=== PATIENT | male | born 1965 | race African-American/Black ===

== ENCOUNTER 2023-10-11 10:20 | Inpatient (IN) | payer MEDICARE, OTHER ==
[2023-10-11 11:11] VITALS: BMI 22.1
[2023-10-11] MEDS ORDERED: POLYETHYLENE GLYCOL (HEALTHYLAX) 3350 17 GM PACKET PO PRN (12:52)
[2023-10-11] MEDS ORDERED: BENZOCAINE/MENTHOL (CHLORASEPTIC ) LOZENGE MM PRN (12:52)
[2023-10-11] MEDS ORDERED: IBUPROFEN 400 MG TABLET (FP) PO PRN (12:52)
[2023-10-11] MEDS ORDERED: NALOXONE (NARCAN) HCL 4 MG/0.1 ML SPRAY NS PRN (12:52)
[2023-10-11] MEDS ORDERED: hydrOXYzine PAMOATE 25 MG CAPSULE (FP) PO PRN (12:52)
[2023-10-11] MEDS ORDERED: ACETAMINOPHEN 325 MG TABLET (FP) PO PRN (12:52)
[2023-10-11] MEDS ORDERED: LOPERAMIDE HCL 2 MG CAPSULE PO PRN (12:52)
[2023-10-11] MEDS ORDERED: BENZONATATE 200 MG CAPSULE PO PRN (12:52)
[2023-10-11] MEDS ORDERED: DICYCLOMINE HCL 10 MG CAPSULE PO PRN (12:52)
[2023-10-11] MEDS ORDERED: NALOXONE HCL 0.4 MG/ML VIAL IM PRN (12:52)
[2023-10-11] MEDS ORDERED: NICOTINE POLACRILEX 2 MG GUM BUC PRN (12:52)
[2023-10-11] MEDS ORDERED: guaiFENesin 600 MG TABLET.ER (FP) PO PRN (12:52)
[2023-10-11] MEDS ORDERED: BISMUTH SUBSALICYLATE 524 MG/30 ML PO PRN (12:52)
[2023-10-11] MEDS: chlordiazePOXIDE HCL 25 MG CAPSULE PO SCH (17:15)
[2023-10-11] MEDS: THIAMINE 100 MG TABLET PO SCH (22:23)
[2023-10-11] MEDS: MELATONIN 5 MG TABLETS PO SCH (22:23)
[2023-10-12] MEDS ORDERED: PATIENT'S OWN MEDICATION (NON-FORMULARY) (Oxycodone Hcl/Acetaminophen [Oxycodone-Acetamino PO PRN (03:17)
[2023-10-12] MEDS: ASPIRIN 81 MG CHEWABLE TABLETS PO SCH (10:15)
[2023-10-12] MEDS: DOCUSATE SODIUM 100 MG CAPSULE (FP) PO SCH (10:15)
[2023-10-12] MEDS: PRENATAL VITAMINS W/ FOLIC ACID TABLET (FP) PO SCH (10:15)
[2023-10-12] MEDS: NICOTINE 21 MG/24 HOURS TOPICAL PATCH TD SCH (10:16)
[2023-10-12] MEDS: ENALAPRIL MALEATE 10 MG TABLET PO SCH (10:16)
[2023-10-12 10:32] LABS: HEMATOCRIT 36.6 % (35.4-49); MCHC 32.7 g/dl (32.0-35.9); MEAN CELL VOLUME 82.7 fl (80-96); MEAN PLT VOLUME 9.4 fl (7.5-11.1); PLATELET COUNT 278 10^3/uL (134-434); RBC 4.43 M/mm3 (4.00-5.60); RDW 14.7 % (11.9-15.9); WHITE BLOOD COUNT 3.5 K/mm3 (4.0-10.0)
[2023-10-12 10:51] LABS: CALCIUM 9.3 mg/dL (8.5-10.1)
[2023-10-12 10:52] LABS: BLOOD UREA NITROGEN 5.6 mg/dL (7-18)
[2023-10-12 10:55] LABS: BILIRUBIN,TOTAL 0.3 mg/dL (0.2-1); TOT PROT 8.1 g/dl (6.4-8.2)
[2023-10-12] MEDS: METHOCARBAMOL 500 MG TABLET PO PRN (11:08)
[2023-10-12] MEDS: hydrOXYzine PAMOATE 50 MG CAPSULE (FP) PO PRN (11:08)
[2023-10-12] MEDS: METHIMAZOLE 10 MG TABLET PO SCH (11:42)
[2023-10-12] MEDS: chlordiazePOXIDE HCL 25 MG CAPSULE PO PRN (14:26)
[2023-10-12] MEDS: MAGNESIUM HYDROX 2400MG/30ML ORAL SUSPENSION 30 ML CUP PO PRN (14:46)
[2023-10-12] MEDS: traZODone HCL 100 MG TABLET (FP) PO SCH (22:25)
[2023-10-12] MEDS: SENNOSIDES 8.6MG TABLET (FP) PO SCH (22:25)
[2023-10-12] MEDS: ATORVASTATIN CA 80 MG TABLET (FP) PO SCH (22:25)
[2023-10-13] MEDS: chlordiazePOXIDE HCL 25 MG CAPSULE PO SCH (05:21)
[2023-10-13] MEDS: IBUPROFEN 600 MG TABLET (FP) PO PRN (05:22)
[2023-10-13] MEDS: METHYL SALICYLATE/MENTHOL OINT 30 GM TUBE TP SCH (12:45)
[2023-10-13] MEDS: NAPROXEN 500 MG TABLET PO SCH (22:46)
[2023-10-14] MEDS ORDERED: chlordiazePOXIDE HCL 10 MG CAPSULE PO PRN
[2023-10-14] MEDS: chlordiazePOXIDE HCL 10 MG CAPSULE PO SCH (05:22)
[2023-10-14] MEDS: METHOCARBAMOL 500 MG TABLET PO PRN (10:47)
[2023-10-14] MEDS: ONDANSETRON *ODT* 4 MG TABLET SL PRN (10:47)
[2023-10-14] MEDS: MAG HYDROX/AL HYDROX/SIMETH 30 ML UNIT-DOSE CUP PO PRN (17:38)
[2023-10-15] MEDS: chlordiazePOXIDE HCL 10 MG CAPSULE PO SCH (05:42)
[2023-10-15 06:51] VITALS: TEMP 97.8
[2023-10-15 08:53] VITALS: BP 144/90; PULSE 77; RESP 16
[2023-10-15] MEDS: DOCUSATE SODIUM 100 MG CAPSULE (FP) PO SCH (09:16)
[2023-10-15] MEDS: SENNOSIDES 8.6MG TABLET (FP) PO SCH (09:18)
[2023-10-16] MEDS ORDERED: chlordiazePOXIDE HCL 10 MG CAPSULE PO ONE (05:00)
== END 2023-10-15 09:12 | disposition other institution (70) | DRG 897 ==
LOC: YASAS 10:20 → Y6N 13:52
PROVIDERS: ADMIT Allergy & Immunology; ATTEND Surgery
PROC: HZ2ZZZZ Detoxification Services for Substance Abuse Treatment (ICD-10-PCS; principal; 2023-10-11)
DX: F10.230 Alcohol dependence with withdrawal, uncomplicated (principal); F14.20 Cocaine dependence, uncomplicated; F19.282 Other psychoactive substance dependence with psychoactive substance-induced sleep disorder; F17.210 Nicotine dependence, cigarettes, uncomplicated; F31.9 Bipolar disorder, unspecified; E05.90 Thyrotoxicosis, unspecified without thyrotoxic crisis or storm; E78.5 Hyperlipidemia, unspecified; K59.00 Constipation, unspecified; K21.9 Gastro-esophageal reflux disease without esophagitis; I25.10 Atherosclerotic heart disease of native coronary artery without angina pectoris; I10 Essential (primary) hypertension; I25.2 Old myocardial infarction; Z95.5 Presence of coronary angioplasty implant and graft; Z86.11 Personal history of tuberculosis; Z86.2 Personal history of diseases of the blood and blood-forming organs and certain disorders involving the immune mechanism
CPT/HCPCS: 36415; 71046-TC-FY; 80053; 80305; 80307; 84484; 85027; 86780; 93005; 93010; Q0162

== ENCOUNTER 2024-02-07 11:29 | Inpatient (IN) | payer MEDICARE, OTHER ==
[2024-02-07 12:11] VITALS: BMI 21.7
[2024-02-07] MEDS ORDERED: NALOXONE (NARCAN) HCL 4 MG/0.1 ML SPRAY NS PRN (12:50)
[2024-02-07] MEDS ORDERED: BISMUTH SUBSALICYLATE 524 MG/30 ML PO PRN (12:50)
[2024-02-07] MEDS ORDERED: LOPERAMIDE HCL 2 MG CAPSULE PO PRN (12:50)
[2024-02-07] MEDS ORDERED: POLYETHYLENE GLYCOL (HEALTHYLAX) 3350 17 GM PACKET PO PRN (12:50)
[2024-02-07] MEDS ORDERED: LORazepam 1 MG TABLET PO PRN (12:50)
[2024-02-07] MEDS ORDERED: BENZONATATE 200 MG CAPSULE PO PRN (12:50)
[2024-02-07] MEDS ORDERED: DICYCLOMINE HCL 10 MG CAPSULE PO PRN (12:50)
[2024-02-07] MEDS ORDERED: ONDANSETRON *ODT* 4 MG TABLET SL PRN (12:50)
[2024-02-07] MEDS ORDERED: IBUPROFEN 400 MG TABLET (FP) PO PRN (12:50)
[2024-02-07] MEDS ORDERED: MAGNESIUM HYDROX 2400MG/30ML ORAL SUSPENSION 30 ML CUP PO PRN (12:50)
[2024-02-07] MEDS ORDERED: MAG HYDROX/AL HYDROX/SIMETH 30 ML UNIT-DOSE CUP PO PRN (12:50)
[2024-02-07] MEDS: NALOXONE (NYS OPIOID OVERDOSE PROGRAM) 4 MG/0.1 ML SPRAY NS ONE (14:12)
[2024-02-07] MEDS ORDERED: LORazepam 2 MG TABLET ONE (14:16)
[2024-02-07] MEDS ORDERED: PRENATAL VITAMINS W/ FOLIC ACID TABLET (FP) PO ONE (14:16)
[2024-02-07] MEDS: LORazepam 2 MG TABLET PO ONE (14:18)
[2024-02-07] MEDS: PRENATAL VITAMINS W/ FOLIC ACID TABLET (FP) PO SCH (14:18)
[2024-02-07] MEDS: ACAMPROSATE CALCIUM 333 MG TABLET.DR PO SCH (15:00)
[2024-02-07] MEDS: AMOXICILLIN 500 MG CAPSULE (FP) PO SCH (15:07)
[2024-02-07] MEDS: IBUPROFEN 600 MG TABLET (FP) PO PRN (15:07)
[2024-02-07] MEDS: LORazepam 2 MG TABLET PO SCH (17:07)
[2024-02-07] MEDS: DOCUSATE SODIUM 100 MG CAPSULE (FP) PO SCH (22:16)
[2024-02-07] MEDS: ATORVASTATIN CA 80 MG TABLET (FP) PO SCH (22:16)
[2024-02-07] MEDS: busPIRone HCL 5 MG TABLET PO SCH (22:16)
[2024-02-07] MEDS: THIAMINE 100 MG TABLET PO SCH (22:16)
[2024-02-07] MEDS: risperiDONE 1 MG TABLET PO SCH (22:16)
[2024-02-07] MEDS: MELATONIN 5 MG TABLETS PO SCH (22:17)
[2024-02-07] MEDS: guaiFENesin 600 MG TABLET.ER (FP) PO PRN (22:22)
[2024-02-07] MEDS: hydrOXYzine PAMOATE 25 MG CAPSULE (FP) PO PRN (22:25)
[2024-02-08] MEDS: ENALAPRIL MALEATE 10 MG TABLET PO SCH (09:46)
[2024-02-08] MEDS: ASPIRIN 81 MG CHEWABLE TABLETS PO SCH (09:46)
[2024-02-08] MEDS: NIFEdipine E.R. 30 MG TABLET PO SCH (09:46)
[2024-02-08] MEDS: METHIMAZOLE 10 MG TABLET PO SCH (09:46)
[2024-02-08] MEDS: CHOLECALCIFEROL (VIT D3) 1,000 UNIT (25 MCG) TABLET PO SCH (09:46)
[2024-02-08] MEDS: NICOTINE 21 MG/24 HOURS TOPICAL PATCH TD SCH (09:48)
[2024-02-08] MEDS: CITALOPRAM HYDROBROMIDE 10 MG TABLET PO SCH (09:49)
[2024-02-08] MEDS ORDERED: chlordiazePOXIDE HCL 25 MG CAPSULE PO PRN (09:56)
[2024-02-08] MEDS: chlordiazePOXIDE HCL 25 MG CAPSULE PO SCH (10:26)
[2024-02-08] MEDS: FLU VACCINE (FLULAVAL) PF 45 MCG/0.5 ML SYRINGE 2024-2025 IM ONE (12:19)
[2024-02-08 13:24] LABS: CHLORIDE 110 mmol/L (98-107); POTASSIUM 3.8 mmol/L (3.5-5.1); SODIUM 142 mmol/L (136-145)
[2024-02-08 13:26] LABS: HEMATOCRIT 33.1 % (35.4-49); MCH 27.5 pg (25.7-33.7); MCHC 33.2 g/dl (32.0-35.9); MEAN CELL VOLUME 82.7 fl (80-96); MEAN PLT VOLUME 8.5 fl (7.5-11.1); PLATELET COUNT 255 10^3/uL (134-434); RDW 15.5 % (11.9-15.9); WHITE BLOOD COUNT 6.2 K/mm3 (4.0-10.0)
[2024-02-08] MEDS: NALOXONE (NYS OPIOID OVERDOSE PROGRAM) 4 MG/0.1 ML SPRAY NS ONE (13:32)
[2024-02-08 13:33] LABS: ANION GAP 4 mmol/L (4-13); BLOOD UREA NITROGEN 14.9 mg/dL (7-18); CO2 29 mmol/L (21-32)
[2024-02-08 13:35] LABS: GLUCOSE,RANDOM 99 mg/dL (74-106)
[2024-02-08 13:36] LABS: SGPT/ALT 20 U/L (13-61)
[2024-02-08 13:37] LABS: SGOT/AST 15 U/L (15-37)
[2024-02-08 13:39] LABS: ALK PHOS 57 U/L (45-117); TOT PROT 6.4 g/dl (6.4-8.2)
[2024-02-08] MEDS ORDERED: NALOXONE (NYS OPIOID OVERDOSE PROGRAM) 4 MG/0.1 ML SPRAY NS PRN (14:28)
[2024-02-08 15:44] LABS: BILIRUBIN,TOTAL 0.2 mg/dL (0.2-1)
[2024-02-09] MEDS ORDERED: LORazepam 1 MG TABLET PO SCH (05:00)
[2024-02-09] MEDS: METHOCARBAMOL 500 MG TABLET PO PRN (10:15)
[2024-02-10] MEDS ORDERED: LORazepam 0.5 MG TABLET PO PRN
[2024-02-10] MEDS ORDERED: LORazepam 0.5 MG TABLET PO SCH (05:00)
[2024-02-10] MEDS: chlordiazePOXIDE HCL 25 MG CAPSULE PO SCH (05:29)
[2024-02-10] MEDS: ACETAMINOPHEN 325 MG TABLET (FP) PO PRN (22:04)
[2024-02-11] MEDS ORDERED: chlordiazePOXIDE HCL 10 MG CAPSULE PO PRN
[2024-02-11] MEDS ORDERED: LORazepam 0.5 MG TABLET PO ONE (05:00)
[2024-02-11] MEDS: chlordiazePOXIDE HCL 10 MG CAPSULE PO SCH (05:46)
[2024-02-11] MEDS: BENZOCAINE/MENTHOL (CHLORASEPTIC ) LOZENGE MM PRN (12:05)
[2024-02-11] MEDS: guaiFENesin 600 MG TABLET.ER (FP) PO SCH (13:56)
[2024-02-11] MEDS: SUVOREXANT 5 MG TABLET PO PRN (22:28)
[2024-02-12] MEDS: chlordiazePOXIDE HCL 10 MG CAPSULE PO SCH (05:20)
[2024-02-13] MEDS: chlordiazePOXIDE HCL 10 MG CAPSULE PO ONE (05:24)
[2024-02-13 06:15] VITALS: RESP 16
[2024-02-13 09:02] VITALS: BP 158/104; PULSE 87; TEMP 97.6
== END 2024-02-13 11:26 | disposition other institution (70) | DRG 897 ==
LOC: YASAS 11:29 → Y3N 13:18
PROVIDERS: ADMIT Allergy & Immunology; ATTEND Surgery
PROC: HZ2ZZZZ Detoxification Services for Substance Abuse Treatment (ICD-10-PCS; principal; 2024-02-07)
DX: F10.230 Alcohol dependence with withdrawal, uncomplicated (principal); F14.20 Cocaine dependence, uncomplicated; F19.282 Other psychoactive substance dependence with psychoactive substance-induced sleep disorder; F12.20 Cannabis dependence, uncomplicated; F17.210 Nicotine dependence, cigarettes, uncomplicated; F19.24 Other psychoactive substance dependence with psychoactive substance-induced mood disorder; F41.9 Anxiety disorder, unspecified; E05.90 Thyrotoxicosis, unspecified without thyrotoxic crisis or storm; E78.5 Hyperlipidemia, unspecified; I25.10 Atherosclerotic heart disease of native coronary artery without angina pectoris; I10 Essential (primary) hypertension; I25.2 Old myocardial infarction; Z95.5 Presence of coronary angioplasty implant and graft; K04.7 Periapical abscess without sinus; Z86.11 Personal history of tuberculosis
CPT/HCPCS: 36415; 80053; 80305; 80307; 82140; 85027; 86780; 87811; 90656; 93005; 93010; G0008

== ENCOUNTER 2024-02-13 11:50 | Inpatient (IN) | payer MEDICARE, OTHER ==
[2024-02-13] MEDS ORDERED: guaiFENesin 600 MG TABLET.ER (FP) PO PRN (13:22)
[2024-02-13] MEDS ORDERED: NICOTINE POLACRILEX 4 MG LOZENGE BC PRN (13:22)
[2024-02-13] MEDS ORDERED: POLYETHYLENE GLYCOL (HEALTHYLAX) 3350 17 GM PACKET PO PRN (13:22)
[2024-02-13] MEDS ORDERED: NALOXONE (NARCAN) HCL 4 MG/0.1 ML SPRAY NS PRN (13:22)
[2024-02-13] MEDS ORDERED: IBUPROFEN 400 MG TABLET (FP) PO PRN (13:22)
[2024-02-13] MEDS ORDERED: NALOXONE HCL 0.4 MG/ML VIAL IVPUSH PRN (13:22)
[2024-02-13] MEDS ORDERED: LOPERAMIDE HCL 2 MG CAPSULE PO PRN (13:22)
[2024-02-13] MEDS ORDERED: NICOTINE POLACRILEX 4 MG GUM BUC PRN (13:22)
[2024-02-13] MEDS ORDERED: BENZONATATE 200 MG CAPSULE PO PRN (13:22)
[2024-02-13] MEDS ORDERED: MAGNESIUM HYDROX 2400MG/30ML ORAL SUSPENSION 30 ML CUP PO PRN (13:22)
[2024-02-13] MEDS: ACAMPROSATE CALCIUM 333 MG TABLET.DR PO SCH (14:55)
[2024-02-13] MEDS: AMOX TR/POT CLAV 875MG/125MG TABLETS (FP) PO SCH (16:46)
[2024-02-13] MEDS: IBUPROFEN 600 MG TABLET (FP) PO PRN (16:46)
[2024-02-13] MEDS: hydrOXYzine PAMOATE 25 MG CAPSULE (FP) PO PRN ×2 (16:47→21:08)
[2024-02-13] MEDS: THIAMINE 100 MG TABLET PO SCH (21:08)
[2024-02-13] MEDS: DOCUSATE SODIUM 100 MG CAPSULE (FP) PO SCH (21:09)
[2024-02-13] MEDS: ROSUVASTATIN CA 20 MG TABLET PO SCH (21:09)
[2024-02-13] MEDS: QUEtiapine FUMARATE 100 MG TABLET (FP) PO SCH (21:09)
[2024-02-13] MEDS ORDERED: MELATONIN 5 MG TABLETS PO SCH (22:00)
[2024-02-13] MEDS ORDERED: ATORVASTATIN CA 40 MG TABLET (FP) PO SCH (22:00)
[2024-02-13] MEDS ORDERED: AMOXICILLIN 500 MG CAPSULE (FP) PO SCH (22:00)
[2024-02-14] MEDS: NICOTINE 21 MG/24 HOURS TOPICAL PATCH TD SCH (09:32)
[2024-02-14] MEDS: PRENATAL VITAMINS W/ FOLIC ACID TABLET (FP) PO SCH (09:32)
[2024-02-14] MEDS: ASPIRIN 81 MG CHEWABLE TABLETS PO SCH (09:32)
[2024-02-14] MEDS: CITALOPRAM HYDROBROMIDE 10 MG TABLET PO SCH (09:32)
[2024-02-14] MEDS: CHOLECALCIFEROL (VIT D3) 1,000 UNIT (25 MCG) TABLET PO SCH (09:32)
[2024-02-14] MEDS: METHIMAZOLE 10 MG TABLET PO SCH (10:32)
[2024-02-14] MEDS: NIFEdipine E.R. 30 MG TABLET PO SCH (10:32)
[2024-02-14] MEDS: ENALAPRIL MALEATE 10 MG TABLET PO SCH (10:32)
[2024-02-14] MEDS: PNEUMOC 20-VAL CONJ-DIP CRM/PF 0.5 ML SYRINGE IM ONE (11:41)
[2024-02-14] MEDS: ACETAMINOPHEN 325 MG TABLET (FP) PO PRN (14:14)
[2024-02-14] MEDS: BENZOCAINE/MENTHOL (CHLORASEPTIC ) LOZENGE MM PRN (21:48)
[2024-02-18] MEDS: MAG HYDROX/AL HYDROX/SIMETH 30 ML UNIT-DOSE CUP PO PRN (00:58)
[2024-02-18] MEDS: METHOCARBAMOL 500 MG TABLET PO PRN (05:47)
[2024-02-18 09:20] VITALS: RESP 18
[2024-02-19 05:33] VITALS: BP 154/89; PULSE 82; TEMP 96.9
== END 2024-02-19 06:15 | disposition home or self-care (01) | DRG 895 ==
LOC: YASAS 11:50 → Y3W 11:53
PROVIDERS: ADMIT Psychiatry & Neurology Pain Medicine; ATTEND Psychiatry & Neurology Pain Medicine
PROC: HZ42ZZZ Group Counseling for Substance Abuse Treatment, Cognitive-Behavioral (ICD-10-PCS; principal; 2024-02-13)
DX: F10.20 Alcohol dependence, uncomplicated (principal); F14.20 Cocaine dependence, uncomplicated; F19.282 Other psychoactive substance dependence with psychoactive substance-induced sleep disorder; F31.81 Bipolar II disorder; F17.210 Nicotine dependence, cigarettes, uncomplicated; F19.24 Other psychoactive substance dependence with psychoactive substance-induced mood disorder; F41.9 Anxiety disorder, unspecified; F90.9 Attention-deficit hyperactivity disorder, unspecified type; E78.5 Hyperlipidemia, unspecified; E05.90 Thyrotoxicosis, unspecified without thyrotoxic crisis or storm; I25.10 Atherosclerotic heart disease of native coronary artery without angina pectoris; I10 Essential (primary) hypertension; Z95.5 Presence of coronary angioplasty implant and graft; J45.909 Unspecified asthma, uncomplicated; K21.9 Gastro-esophageal reflux disease without esophagitis
CPT/HCPCS: 82140